=== PATIENT | male | born 1960 | race Asian ===

== ENCOUNTER 2017-03-16 09:25 | Emergency (ER) | payer BC ==
[~2017-03-16] VITALS: Ht 172.7 cm; Wt 71.7 kg
[2017-03-16 10:59] VITALS: BP 118/79
== END 2017-03-16 10:59 | disposition home or self-care (01) ==
LOC: ED 09:25
DX: S61.411A Laceration without foreign body of right hand, initial encounter (principal); W45.8XXA Other foreign body or object entering through skin, initial encounter; Y93.89 Activity, other specified; Y99.8 Other external cause status; Y92.89 Other specified places as the place of occurrence of the external cause
CPT/HCPCS: 90715; J2001